=== PATIENT | male | born 1970 | race Hispanic/Latino ===

== ENCOUNTER 2021-07-01 08:46 | Emergency (ER) | payer SELFPAY ==
[2021-07-01] MEDS ORDERED: Ipratropium Bromide 2.5 ml Neb ONE (09:45)
[2021-07-01] MEDS ORDERED: Albuterol Sulfate 2.5 mg/0.5 ml Neb ONE ×2 (09:45→11:11)
[2021-07-01] MEDS ORDERED: predniSONE 20 MG TAB ONE (10:26)
[2021-07-01] MEDS ORDERED: Albuterol Sulfate 2.5 mg/3 ml Neb ONE (11:11)
[2021-07-01 21:37] LABS: SARS-CoV-2 PCR by NAA Not Detected (NotDetected)
== END 2021-07-01 12:12 | disposition home or self-care (01) ==
LOC: CSHERS 08:46
DX: J45.901 Unspecified asthma with (acute) exacerbation (principal); Z20.822 Contact with and (suspected) exposure to COVID-19
CPT/HCPCS: J7512; J7611; U0003; U0005